=== PATIENT | female | born 1985 | race Caucasian/White ===

== ENCOUNTER 2019-04-27 08:33 | Outpatient (CLI) | payer BC ==
[2019-04-27 09:31] LABS: BHCG - Serum Negative (NEGATIVE); Pregs Control Background? CLEAR/WHITE (CLR/WHITE); Pregs Control Bar Appear? YES (CONTROL BAR)
[2019-04-27 10:02] LABS: Follow-up Chemistry Comp? YES
[2019-04-27] MEDS ORDERED: Iopamidol 300 61% 30 ML VIAL ONE (10:53)
--- NOTE | 2019-04-27 12:16 | RAD ---
HYSTEROSALPINGOGRAM: Date: HISTORY: Fertility testing. COMPARISON: 06/10/14. EXPOSURE: 0.9 minutes. 76.4 mGy*M^2. FINDINGS: Retrograde contrast opacification of the endometrial cavity with Isovue-M 300 contrast demonstrates o pacification of the upper aspect of the endometrium. There is minimal opacification of the proximal l eft and right fallopian tubes. No evidence of free spillage. Suboptimal evaluation of the lower uteri ne segment due to the balloon being pushed out of the endometrial cavity while giving gentle administ ration of contrast, likely due to buildup of pressure. IMPRESSION: No evidence of a patent left and right fallopian tube. No evidence of free spillage in the left and r ight hemipelvis. POS: OFF
== END 2019-04-27 08:34 | disposition home or self-care (01) ==
LOC: RAD 08:33
PROVIDERS: ATTEND Obstetrics & Gynecology
DX: Z32.00 Encounter for pregnancy test, result unknown (principal); N97.9 Female infertility, unspecified
CPT/HCPCS: 36415; 58340; 74740; 84703; Q9967

== ENCOUNTER 2023-02-11 09:21 | Outpatient (CLI) | payer BC ==
[2023-02-11 10:00] LABS: BHCG - Serum Negative (NEGATIVE); Pregs Control Background? CLEAR/WHITE (CLR/WHITE); Pregs Control Bar Appear? YES (CONTROL BAR)
== END 2023-02-11 09:22 | disposition home or self-care (01) ==
LOC: RAD 09:21
PROVIDERS: ATTEND Obstetrics & Gynecology
DX: Z31.41 Encounter for fertility testing (principal)
CPT/HCPCS: 36415; 58340; 74740; 84703